=== PATIENT | female | born 1980 ===

== ENCOUNTER → 2016-07-25 | Outpatient (CLI) | payer BC ==
[2016-07-25 18:01] LABS: BASO % 0.3 %; BASO ABS # 0.03 K/uL (0-0.2); COMPLETE YES; EOS % 1.6 %; HEMATOCRIT 42.2 % (37-47); IG% 0.2 %; LYMPH % 29.3 %; MEAN CELL VOLUME 87.7 fL (80-100); MEAN CORPUSCULAR HEMOGLOBIN 29.3 pg (25-34); MEAN CORPUSCULAR HGB CONC 33.4 g/dl (32-36); MEAN PLATELET VOLUME 8.9 fL (7.4-10.4); MONO % 7.8 %; NEUT % 60.8 %; PLATELET COUNT 305 K/uL (130-400); RED BLOOD COUNT 4.81 M/uL (4.2-5.4)
[2016-07-25 20:18] LABS: LYME DISEASE AB IGM NEG (NEG)
[2016-07-25 20:19] LABS: LYME DISEASE AB IGG NEG (NEG)
== END | disposition home or self-care (01) ==
LOC: C.LABMFLN 07:33
PROVIDERS: ATTEND Physician Assistant
DX: H91.20 Sudden idiopathic hearing loss, unspecified ear (principal)

== ENCOUNTER → 2016-07-31 | Outpatient (CLI) | payer BC ==
[~2016-07-31] MED LIST: GADAVIST IV PRN
--- NOTE | 2016-07-31 21:31 | DIAGNOSTIC IMAGING REPORT ---
BRAIN COMBO FOR IAC CLINICAL HISTORY: Sudden onset right sensorineural hearing loss. COMPARISON STUDY: No previous studies for comparison. TECHNIQUE: Helical 1.5 [place] magnet and dedicated coil, multiplanar, multi echo imaging of the brain was performed pre and postcontrast administration with thin cut imaging through the internal auditory canals. Injection of 7 cc of Gadavist IV was uneventful. FINDINGS: There are no areas of restricted diffusion. No acute intracranial hemorrhage, midline shift or mass effect is present. Brain volume is normal. Ventricular system is normal. Basilar cisterns are patent. There are no extra-axial collections. Flow-voids for the major intracranial vessels are present. There is no intracranial mass or pathologic enhancement. No abnormalities are identified within the internal auditory canals. There is a small mucous retention cyst within the left sphenoid sinus. There is also a small mucous retention cyst within the left maxillary sinus. No areas of parenchymal signal abnormality are present. The semicircular canals are intact. There is no fluid within the middle ears. There is no fluid within the mastoid air cells. No mass is identified within the cerebellopontine angles. IMPRESSION: 1. Unremarkable MRI of the brain and internal auditory canals. 2. A few small mucous retention cysts within the sinuses. Electronically signed by: Tremayne Barney M.D. 07/31/2016 9:30 PM Dictated Date/Time: 07/31/2016 9:22 PM
== END | disposition home or self-care (01) ==
LOC: C.MRI 18:53
PROVIDERS: ATTEND Physician Assistant
DX: H91.20 Sudden idiopathic hearing loss, unspecified ear (principal)

== ENCOUNTER → 2016-09-25 | Outpatient (CLI) | payer BC | END | disposition home or self-care (01) | LOC: C.LABMFLN 13:33 | PROVIDERS: ATTEND Family Medicine | DX: N39.0 Urinary tract infection, site not specified (principal) ==